=== PATIENT | female | born 1990 | race Hispanic/Latino ===

== ENCOUNTER 2017-07-29 11:35 | Inpatient (IN) | payer OTHER ==
[~2017-07-29] VITALS: Ht 160 cm; Wt 105.2 kg
[2017-07-29 11:45] VITALS: BP 138/78
--- NOTE | 2017-07-29 11:45 | NUR ---
WITH EDC OF 08/26/17 CAME TO TRIAGE C/O SROM AT MIDNIGHT AND NOT FEELING BABY MOVE FOR THE PAST HOUR. HEIGHT/WEIGHT/UA/DOA OBTAINED, ASSISTED TO BED.
--- NOTE | 2017-07-29 12:03 | NUR ---
EFM STARTED AT THIS TIME. PT REPOSITIONED TO RIGHT TILT.
[2017-07-29 12:15] LABS: URINE BILIRUBIN - DIPSTICK NEGATIVE (NEGATIVE); URINE BLOOD DIPSTICK NEGATIVE (NEGATIVE); URINE CLARITY CLEAR; URINE COLOR YELLOW; URINE GLUCOSE - DIPSTICK NEGATIVE (NEGATIVE); URINE KETONE NEGATIVE (NEGATIVE); URINE LEUK ESTERASE NEGATIVE (NEGATIVE); URINE NITRITE - DIPSTICK NEGATIVE (Negative); URINE PH 7.5 (4.5-8.0); URINE PROTEIN - DIPSTICK NEGATIVE (NEG-TRACE); URINE UROBILINOGEN - DIPSTICK 0.2 E.U./dL (0.2)
[2017-07-29 12:17] LABS: BARBITURATES NEGATIVE (NEGATIVE); COCAINE NEGATIVE (NEGATIVE); METHADONE NEGATIVE (NEGATIVE); OXCYCODONE NEGATIVE (NEGATIVE); TETRAHYDROCANNABIONOL NEGATIVE (NEGATIVE); TRICYLIC ANTIDEPRESSANTS NEGATIVE (NEGATIVE)
[2017-07-29] MEDS ORDERED: PRE-NATAL PO (12:18)
[2017-07-29] MEDS ORDERED: FERR SULFATE325 MG PO (12:18)
[2017-07-29 12:30] VITALS: BP 120/69
--- NOTE | 2017-07-29 12:30 | NUR ---
NO RECORDS AVAILABLE, WAITING FOR OFFICE TO FAX RECORDS BEFORE COLLECTING FERN AND ROM PLUS.
--- NOTE | 2017-07-29 12:45 | NUR ---
GBS AND ROM PLUS COLLECTED AND THEN FERN VIA SPECULUM. SMALL AMOUNT THIN LIQUID SEEN ON POSTERIOR FORNIX, BUT MOSTLY MUCOUS NOTED. SENT TO LAB.
--- NOTE | 2017-07-29 12:59 | NUR ---
PT CALLED NURSE, LARGE AMOUNT OF CLEAR FLUID NOTED ON CHUX, CHUX CHANGED.
[2017-07-29 13:00] VITALS: BP 118/67
--- NOTE | 2017-07-29 13:13 | NUR ---
SVE DONE, %/-2, PRESENTING PART UNABLE TO BE FELT WELL, BALLOTABLE.
--- NOTE | 2017-07-29 13:20 | NUR ---
DR. ROSS NOTIFIED OF PT BEING HERE, SROM AT MIDNIGHT WITH POSITIVE FERN AND ROM+, NO CONTRACTIONS, SVE 1/50%/-3 AND UNABLE TO FEEL PRESENTING PART WELL. ORDERS RECEIVED.
--- NOTE | 2017-07-29 13:41 | NUR ---
DR. ROSS AT BEDSIDE ASSESSING PT.
[2017-07-29 13:58] LABS: HEMATOCRIT 35.6 % (37.0-47.0); HEMOGLOBIN 11.5 g/dl (12.0-16.0); IMMATURE GRANULOCYTES 0.5 % (0.0-1.0); MEAN CELL VOLUME 88.8 fL CALC (80.0-100.0); MEAN CORPUSCULAR HGB 28.7 pG CALC (26.0-32.0); MEAN CORPUSCULAR HGB CONC 32.3 g/L CALC (32.0-36.0); NEUT# 5.88 thou/uL (2.00-7.15); RED BLOOD COUNT 4.01 mill/uL (4.20-5.60); RED CELL DISTRI WIDTH 15.2 % (11.5-15.5)
[2017-07-29 14:00] VITALS: BP 116/69
--- NOTE | 2017-07-29 14:05 | NUR ---
PT TAKEN TO ULTRASOUND BY WHEELCHAIR AT THIS TIME.
[2017-07-29 14:24] LABS: ALBUMIN 3.2 g/dL (3.2-5.0); ALKALINE PHOSPHATASE 110 u/l (38-126); ANION GAP 11 (6-22 (CALC)); BILIRUBIN, TOTAL 0.4 mg/dL (0.0-1.4); BUN 5 mg/dL (7-17); BUN/CREATININE RATIO 13 (12-20 (CALC)); CALCIUM 9.1 mg/dL (8.4-10.2); CARBON DIOXIDE 22 mmol/l (22-30); CHLORIDE 108 mmol/l (95-108); CREATININE 0.4 mg/dL (0.5-1.0); GFR > 60 ML/MIN (>=60 (CALC)); GFR FOR AFR.AMER. > 60 ML/MIN (>=60 (CALC)); GLUCOSE 80 mg/dL (65-105); SGOT/AST 20 u/l (14-36); SGPT/ALT 25 u/l (9-52); SODIUM 137 mmol/l (137-146); TOTAL PROTEIN 6.3 g/dL (6.3-8.2)
--- NOTE | 2017-07-29 14:40 | NUR ---
PT BACK FROM ULTRASOUND AT THIS TIME. VERBAL REPORT FROM DISK RECOATER IS THAT BABY IS BREECH.
[2017-07-29 14:45] VITALS: BP 109/62
--- NOTE | 2017-07-29 15:00 | NUR ---
DR. ROSS IN UNIT AND REVIEWED ULTRASOUND. PLAN IS TO TRANSFER PT TO HIGHER CARE FACILITY IF POSSIBLE.
[2017-07-29 15:30] VITALS: BP 114/64
--- NOTE | 2017-07-29 15:30 | NUR ---
[facility], DR. REYNOLDS, HAS ACCEPTED PT. DISCUSSED PLAN OF CARE WITH PT, PT VERBALIZED UNDERSTANDING AND IS IN AGREEMENT.
--- NOTE | 2017-07-29 15:49 | NUR ---
REPORT CALLED TO HENRIQUE MUNSON AT [facility].
--- NOTE | 2017-07-29 15:58 | NUR ---
[facility] TRANSPORT TEAM IS HERE, PT VOIDED. REPORT GIVEN TO TRANSPORT TEAM.
--- NOTE | 2017-07-29 16:10 | NUR ---
PT LEFT WITH TRANSPORT TEAM TO [facility] AT THIS TIME. PT'S SIGNIFICANT OTHER IS DOWNSTAIRS AND WILL FOLLOW THE AMBULANCE TO [facility]. ALL BELONGINGS SENT WITH PT AND TRANSPORT TEAM.
== END 2017-07-29 16:10 | disposition short-term general hospital (02) | DRG 782 ==
LOC: OBOP 11:35 → ED 11:35 → EDSTATUS 11:38 → OBOP 11:50 → OB 11:50 → OBOP 13:20 → OB 16:10
PROVIDERS: Obstetrics & Gynecology
DX: O42.913 Preterm premature rupture of membranes, unspecified as to length of time between rupture and onset of labor, third trimester (principal); Z68.41 Body mass index [BMI] 40.0-44.9, adult; O32.1XX0 Maternal care for breech presentation, not applicable or unspecified; O99.213 Obesity complicating pregnancy, third trimester; E66.01 Morbid (severe) obesity due to excess calories; Z3A.35 35 weeks gestation of pregnancy
CPT/HCPCS: J2540